=== PATIENT | female | born 1955 | race Caucasian/White ===

== ENCOUNTER 2018-05-31 00:07 | Inpatient (IN) | payer BC ==
[~2018-05-31] VITALS: Ht 144.8 cm; Wt 62.6 kg
[~2018-05-31 00:07] MED LIST: ASPI-320 PO; GLIP5TAB11 PO; INSDGIPEN SC; LEVO75TA5 PO; LISI20TA3 PO; LPT40 PO; PLV75 PO
--- NOTE | 2018-05-31 00:53 | EMERGENCY ROOM VISIT NOTE ---
History Report prepared by Sumit: Jarret Gatica Under the Supervision of: Dr. Alf Regan M.D. First contact with patient: 00:36 Chief Complaint: STROKE SYMPTOMS Stated Complaint: LFT ARM NUMB,LFT SIDE OF FACE NUMB,TROUBLE TALKING Nursing Triage Summary: pt states around 2330 she developed left arm numbness and "my hand was like a claw, I couldn't open or close it". Pt also states at the time she had left facial numbness and facial droop. History of Present Illness The patient is a 63 year old female who presents to the Emergency Room with complaints of resolved left arm numbness that occurred at 2330. The patient states that she woke up an hour ago and noticed her left arm was numb. She states that she was not able to use her left arm or put pressure on it. She notes that her left face was tingling and her speech was slightly slurred. The patient states that this episode lasted for about 16 minutes. She notes that her left ankle has also been swollen recently. The patient denies headache, neck pain, calf pain, falls, abdominal pain, nausea, vomiting, chest pain, back pain, shortness of breath, vision changes, urinary symptoms, and diarrhea. The patient states that she does have a history of CVA. She reports that her symptoms were somewhat similar to her current symptoms, except her symptoms were constant. She also reports she had difficulty with walking at that time. The patient states that she currently takes Plavix and Aspirin. She denies missing any doses. The patient reports a history of Diabetes. She states her BSG was 111 today. The patient denies taking any antacids. Source of History: patient Onset: 2330 Position: arm (left) Quality: numbness Timing: resolved Associated Symptoms: No headache, No neck pain, No chest pain, No SOB, No nausea, No vomiting, No abdominal pain, No back pain, No diarrhea, No urinary symptoms Note: Associated symptoms: speech slur, left facial tingling Denies: calf pain, vision changes. Review of Systems See HPI for pertinent positives & negatives. A total of 10 systems reviewed and were otherwise negative. Past Medical & Surgical Medical Problems: (1) CVA (cerebral vascular accident) (2) Diabetes mellitus type II, controlled (3) H/O reduction of closed fracture (4) HTN (hypertension) (5) Hypertensive urgency (6) Hypothyroidism (7) TIA (transient ischemic attack) Surgical Problems: (1) H/O cataract removal with insertion of prosthetic lens (2) History of appendectomy (3) History of cholecystectomy Family History FH: cancer FH: gallbladder disease FH: heart disease FH: lung disease Stroke Social History Smoking Status: Never Smoker Drug Use: none Marital Status: single Housing Status: lives alone Occupation Status: retired Current/Historical Medications Scheduled Amlodipine (Norvasc), 5 MG PO DAILY Aspirin (Aspirin Ec), 81 MG PO QAM Clopidogrel (Plavix), 75 MG PO DAILY Glipizide (Glucotrol), 5 MG PO BID Insulin Glargine (Lantus Solostar), 5 UNITS SQ QPM Levothyroxine Sodium (Levothyroxine Sodium), 75 MCG PO DAILY Lisinopril (Prinivil), 20 MG PO DAILY Allergies Coded Allergies: NO KNOWN DRUG ALLERGIES (Verified Allergy, Unknown, ., 05/31/18) Aspirin (Verified Adverse Reaction, Unknown, NOSE BLEEDS FROM DOSES HIGHER THAN 81MG, 05/31/18) Physical Exam Vital Signs Date Time Temp Pulse Resp B/P (MAP) Pulse Ox O2 Delivery O2 Flow Rate FiO2 05/31/18 02:00 36.8 94 18 174/85 99 Room Air 05/31/18 00:49 107 05/31/18 00:14 36.8 108 18 196/84 99 Room Air Physical Exam GENERAL: Patient is well appearing and in no acute distress. EYES: No scleral icterus, unremarkable pupils. ENT: Mucous membranes moist, no nasal congestion. NECK: No masses appreciated, no meningismus, trachea is midline. RESPIRATORY: No dyspnea. Clear to auscultation and equal bilaterally. No wheeze , no rhonchi. CARDIOVASCULAR: Regular rate and rhythm. No murmurs, rubs, gallops appreciated. GASTROINTESTINAL: Abdomen soft, nontender, no peritonitis. Bowel sounds positive. No masses appreciated. BACK: No midline tenderness, no CVA tenderness EXTREMITIES: Normal motion all extremities, no cyanosis, mildly increased circumference to left calf compared to right, no tenderness. NEUROLOGIC: Alert and oriented, no acute motor or sensory deficits, no focal weakness, cranial nerves grossly intact. SKIN: No rash, no jaundice, no diaphoresis. Medical Decision & Procedures ER Provider Diagnostic Interpretation: Stat Rad Radiology results and stated below per my review and radiologist interpretation: CT HEAD: No acute infarction or hemorrhage. Chronic lacunar infarction in the right periventricular area. Radiologist: Kulwinder Pringle MD US VENOUS LEFT LOWER EXTREMITY: Occlusive DVT in the left peroneal vein. No other DVT in the remainder of the veins of the left lower extremity. Radiologist: Mercy Carroll MD X ray results are stated below per my interpretation: Chest: 1 view: No infiltrate, no effusion, normal cardiac border. Laboratory Results 05/31/18 00:30 Red Blood Count 4.54, Mean Corpuscular Volume 83.3, Mean Corpuscular Hemoglobin 28.9, Mean Corpuscular Hemoglobin Concent 34.7, Mean Platelet Volume 10.1, Neutrophils (%) (Auto) 62.6, Lymphocytes (%) (Auto) 28.2, Monocytes (%) (Auto) 5.4, Eosinophils (%) (Auto) 3.0, Basophils (%) (Auto) 0.5, Neutrophils # (Auto) 3.72, Lymphocytes # (Auto) 1.68, Monocytes # (Auto) 0.32, Eosinophils # (Auto) 0.18, Basophils # (Auto) 0.03 05/31/18 00:30 Test 05/31/18 00:30 White Blood Count 5.95 K/uL (4.8-10.8) Red Blood Count 4.54 M/uL (4.2-5.4) Hemoglobin 13.1 g/dL (12.0-16.0) Hematocrit 37.8 % (37-47) Mean Corpuscular Volume 83.3 fL (80-100) Mean Corpuscular Hemoglobin 28.9 pg (25-34) Mean Corpuscular Hemoglobin Concent 34.7 g/dl (32-36) Platelet Count 217 K/uL (130-400) Mean Platelet Volume 10.1 fL (7.4-10.4) Neutrophils (%) (Auto) 62.6 % Lymphocytes (%) (Auto) 28.2 % Monocytes (%) (Auto) 5.4 % Eosinophils (%) (Auto) 3.0 % Basophils (%) (Auto) 0.5 % Neutrophils # (Auto) 3.72 K/uL (1.4-6.5) Lymphocytes # (Auto) 1.68 K/uL (1.2-3.4) Monocytes # (Auto) 0.32 K/uL (0.11-0.59) Eosinophils # (Auto) 0.18 K/uL (0-0.5) Basophils # (Auto) 0.03 K/uL (0-0.2) RDW Standard Deviation 41.7 fL (36.4-46.3) RDW Coefficient of Variation 13.8 % (11.5-14.5) Immature Granulocyte % (Auto) 0.3 % Immature Granulocyte # (Auto) 0.02 K/uL (0.00-0.02) Prothrombin Time 10.0 SECONDS (9.0-12.0) Prothromb Time International Ratio 1.0 (0.9-1.1) Activated Partial Thromboplast Time 26.6 SECONDS (21.0-31.0) Partial Thromboplastin Ratio 1.0 Anion Gap 10.0 mmol/L (3-11) Est Creatinine Clear Calc Drug Dose 42.1 ml/min Estimated GFR () 65.0 Estimated GFR (Non- 56.1 BUN/Creatinine Ratio 26.8 (10-20) Calcium Level 8.9 mg/dl (8.5-10.1) Magnesium Level 1.9 mg/dl (1.8-2.4) Total Bilirubin 0.5 mg/dl (0.2-1) Direct Bilirubin < 0.1 mg/dl (0-0.2) Aspartate Amino Transf (AST/SGOT) 18 U/L (15-37) Alanine Aminotransferase (ALT/SGPT) 24 U/L (12-78) Alkaline Phosphatase 135 U/L (45-117) Total Creatine Kinase 147 U/L (26-192) Troponin I < 0.015 ng/ml (0-0.045) Total Protein 7.9 gm/dl (6.4-8.2) Albumin 4.0 gm/dl (3.4-5.0) Thyroid Stimulating Hormone (TSH) 1.670 uIu/ml (0.300-4.500) Laboratory results as reviewed by me. ECG Per My Interpretation Indication: weakness Rate (beats per minute): 113 Rhythm: sinus tachycardia Findings: ST depression (Lateral), no acute ischemic change, no ectopy Comparison ECG Date: 09/17/16 Change: no significant change ED Course 0038: The patient was evaluated in room A11B. A complete history and physical exam was performed. 0141: I reevaluated the patient and he is stable. 0315: I reevaluated the patient and updated her on her results. Her blood pressure is now 118/60. She is willing to be evaluated by a hospitalist. 032: I discussed the patients case with Naheed James. He understands the patients condition and agrees to accept the patient. The patient will be evaluated for further management and care. Medical Decision Differential: Sepsis, Infectious (UTI/Pneumonia/Meningitis/etc), Metabolic/ Electrolyte Abnormality, Cardiac, Dehydration, Anemia, Hepatic, Endocrine, Toxicologic, Neurologic, amongst other pathologies entertained. 63 yr old female arrives for evaluation of left arm weakness that resolved prior to arrival. However on exam she is noted to have left calf swelling. CT head negative. EKG, labs OK. US left leg with distal DVT. She is on dual antiplatelets already and still having stroke like symptoms. She will need further work-up and evaluation for this that can not safely be done as outpatient at this time. Hospitalist consulted for further management. She is is stable, no further symptoms, no PE symptoms, and is no distress, I discussed anticoagulation with him and he will manage. Medication Reconcilliation Current Medication List: was personally reviewed by me Blood Pressure Screening Patient's blood pressure: Elevated blood pressure Referred to Hospitalist Consults Time Called: 320 Consulting Physician: Naheed James Returned Call: [phone] I discussed the patients case with Naheed Jmaes. He understands the patients condition and agrees to accept the patient. The patient will be evaluated for further management and care. Impression Primary Impression: TIA (transient ischemic attack) Additional Impression: DVT (deep venous thrombosis) Scribe Attestation The scribe's documentation has been prepared under my direction and personally reviewed by me in its entirety. I confirm that the note above accurately reflects all work, treatment, procedures, and medical decision making performed by me. Departure Information Dispostion Being Evaluated By Hospitalist Referrals Amrit Agudelo M.D. (PCP) Patient Instructions My [facility] Problem Qualifiers
[2018-05-31 00:54] LABS: BASO % 0.5 %; BASO ABS # 0.03 K/uL (0-0.2); EOS ABS # 0.18 K/uL (0-0.5); HEMATOCRIT 37.8 % (37-47); HEMOGLOBIN 13.1 g/dL (12.0-16.0); IG# 0.02 K/uL (0.00-0.02); LYMPH % 28.2 %; LYMPH ABS # 1.68 K/uL (1.2-3.4); MEAN CELL VOLUME 83.3 fL (80-100); MEAN CORPUSCULAR HEMOGLOBIN 28.9 pg (25-34); MEAN CORPUSCULAR HGB CONC 34.7 g/dl (32-36); MEAN PLATELET VOLUME 10.1 fL (7.4-10.4); MONO % 5.4 %; MONO ABS # 0.32 K/uL (0.11-0.59); NEUT % 62.6 %; NEUT ABS # 3.72 K/uL (1.4-6.5); PLATELET COUNT 217 K/uL (130-400); RED CELL DISTRIBUTION WIDTH CV 13.8 % (11.5-14.5); RED CELL DISTRIBUTION WIDTH SD 41.7 fL (36.4-46.3); WHITE BLOOD COUNT 5.95 K/uL (4.8-10.8)
[2018-05-31 01:04] LABS: PTT PATIENT 26.6 SECONDS (21.0-31.0)
[2018-05-31 01:17] LABS: BLOOD UREA NITROGEN 28 mg/dl (7-18); CALCIUM 8.9 mg/dl (8.5-10.1); CARBON DIOXIDE 22 mmol/L (21-32); CREATININE 1.05 mg/dl (0.60-1.20); GLUCOSE 146 mg/dl (70-99); POTASSIUM 3.7 mmol/L (3.5-5.1); SODIUM 136 mmol/L (136-145)
[2018-05-31] MEDS ORDERED: ASPI81TA28 PO (01:24)
[2018-05-31] MEDS ORDERED: AMLO5TAB3 PO (01:26)
[2018-05-31] MEDS ORDERED: CLOP1TAB15 PO (01:28)
[2018-05-31] MEDS ORDERED: INSDGIPEN SQ (01:30)
[2018-05-31] MEDS ORDERED: IV FLUIDS COMPLETED PRN (04:00)
[2018-05-31] MEDS ORDERED: GLUCOSE 10 TABS/TUBE PO PRN (04:15)
[2018-05-31] MEDS ORDERED: TRAMADOL HCL 50 MG TAB PO PRN (04:15)
[2018-05-31] MEDS ORDERED: DEXTROSE 50% 50 ML SYR IV PRN (04:15)
[2018-05-31] MEDS ORDERED: PHARMACIST DISCHARGE MED REC CONSULT PRN (04:15)
[2018-05-31] MEDS ORDERED: GLUCAGON FOR INJ 1 MG VIAL SQ PRN (04:15)
[2018-05-31] MEDS ORDERED: ACETAMINOPHEN 325 MG TAB PO PRN (04:15)
[2018-05-31] MEDS ORDERED: NITROGLYCERIN 0.4 MG SL PER TAB CHARGE SL PRN (04:15)
[2018-05-31] MEDS ORDERED: PROCHLORPERAZINE INJ 5 MG in SYRINGE 4 ML IV PRN (04:15)
[2018-05-31] MEDS ORDERED: LORAZEPAM 2 MG/ML 1 ML VIAL IV PRN (04:15)
[2018-05-31] MEDS ORDERED: CARBOHYDRATES FOR HYPOGLYCEMIA PO PRN (04:15)
[2018-05-31] MEDS ORDERED: GLUCOSE 40% GEL 15 GM TUBE PO PRN (04:15)
[2018-05-31] MEDS ORDERED: HEPARIN IV LOW DOSE NO BOLUS SCH (04:41)
[2018-05-31] MEDS ORDERED: PATIENT'S ALLERGY INFO NEEDS ENTERED STA (04:41)
[2018-05-31 04:44] LABS: ALKALINE PHOSPHATASE 135 U/L (45-117); ALT/SGPT 24 U/L (12-78); AST/SGOT 18 U/L (15-37); TOTAL PROTEIN 7.9 gm/dl (6.4-8.2)
[2018-05-31] MEDS ORDERED: HEPARIN 25000 UNIT/500 ML D5W ONE (05:02)
[2018-05-31] MEDS: HEPARIN 25,000 UNIT/500ML D5W 500 ML IV SCH (05:30)
[2018-05-31] MEDS ORDERED: NSS + 20MEQ KCL 1000ML 1,000 ML IV ONE (06:00)
[2018-05-31] MEDS ORDERED: INSULIN ASPART 100 UNITS/ML 3 ML PEN SC ONE (06:00)
[2018-05-31] MEDS ORDERED: LORAZEPAM INJ 0.5 MG in SYRINGE 0.75 ML IV PRN (06:00)
[2018-05-31 06:15] VITALS: BP 155/83; PULSE 113; TEMP 36.8; O2SAT 98; Ht 144.8 cm; Wt 62.6 kg
[2018-05-31 06:45] LABS: HEMOGLOBIN A1C 8.4 % (4.5-5.6)
--- NOTE | 2018-05-31 06:56 | DIAGNOSTIC IMAGING REPORT ---
LEFT LOWER EXTREMITY VENOUS DOPPLER HISTORY: left calf/ankle swelling COMPARISON STUDY: None. FINDINGS: Thrombus within the left peroneal veins. The remaining left lower extremity deep venous system is patent. IMPRESSION: Left lower extremity DVT within the peroneal veins. Electronically signed by: Yann Kenney M.D. 05/31/2018 6:54 AM Dictated Date/Time: 05/31/2018 6:54 AM
--- NOTE | 2018-05-31 07:08 | DIAGNOSTIC IMAGING REPORT ---
HEAD CT NONCONTRAST CT DOSE: 537.48 mGy.cm HISTORY: Left-sided facial and arm numbness. stroke TECHNIQUE: Multiaxial CT images of the head were performed without the use of intravenous contrast. Automated exposure control was utilized for this study. A dose lowering technique was utilized adhering to the principles of ALARA. Comparison: Head CT 09/17/2016. Findings: The paranasal sinuses and mastoid air cells are clear. The calvarium and skull base are intact. There is no mass, hematoma, midline shift, acute infarct. White matter hypodensity is nonspecific but suggestive of microvascular ischemic change. The ventricles and sulci demonstrate mild age-related involutional changes. Old small right periventricular infarcts. Impression: No acute intracranial abnormality. Old small right periventricular infarcts. Electronically signed by: Yann Kenney M.D. 05/31/2018 7:07 AM Dictated Date/Time: 05/31/2018 7:04 AM
[2018-05-31] MEDS: PANTOprazole SOD 40 MG TAB PO SCH (08:22)
[2018-05-31] MEDS: CLOPIDOGREL BISULFATE 75 MG TAB PO SCH (08:22)
[2018-05-31] MEDS: LEVOTHYROXINE 75 MCG TAB PO SCH (08:22)
[2018-05-31] MEDS: ASPIRIN 81 MG ECTAB PO SCH (08:49)
[2018-05-31] MEDS: INSULIN GLARGINE SOLOSTAR 100 UNITS/ML 3 ML PEN SQ SCH (09:00)
[2018-05-31] MEDS ORDERED: LISINOPRIL 2.5 MG TAB PO SCH (09:00)
--- NOTE | 2018-05-31 09:07 | DIAGNOSTIC IMAGING REPORT ---
CHEST ONE VIEW PORTABLE HISTORY: Left arm numbness. stroke symptoms COMPARISON: None. FINDINGS: The lungs are clear. Cardiac silhouette is normal in size. No pleural effusions. No pneumothorax. IMPRESSION: No acute process. Electronically signed by: Yann Kenney M.D. 05/31/2018 9:06 AM Dictated Date/Time: 05/31/2018 9:05 AM
[2018-05-31] MEDS ORDERED: PERFLUTREN LIPID MICROSPHERE (DEFINITY) IV ONE (11:42)
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
[2018-05-31 11:58] LABS: PTT PATIENT 32.3 SECONDS (21.0-31.0)
--- NOTE | 2018-05-31 12:23 | NEUROLOGY CONSULTATION ---
DATE OF CONSULTATION: 05/31/2018 REASON FOR CONSULTATION: Transient ischemic attack. HISTORY OF PRESENT ILLNESS: The patient is a 63-year-old left-handed female who was admitted through the Emergency Room because of left arm numbness. The patient had been lying in bed and woke up and noted her left arm was numb and clumsy as well as weak. She has subsequently noted that there is numbness in the face, a droop of the left mouth, mild dysarthria. There were no lower extremity symptoms. No change in vision, no dizziness and no accompanying headache. There was no alteration of consciousness. The symptoms lasted about half an hour and have resolved entirely. She has otherwise been well. For at least 2 months she has noted some mild asymmetric swelling of her lower extremities, more so on the left than the right. She had flown to [place] in February but did not necessarily notice this at that time. She has not had any recent headache, chest pain, palpitation, shortness of breath, head or neck trauma, chiropractic manipulation of the neck, medical or dental procedures. Her weight has been essentially stable. Her blood sugar was within a normal range. Patient has a history in 2016 of stroke which presented with a field cut toward the left and left arm and left leg weakness. Those symptoms resolved entirely. 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 She indicates that she does not know the results but that no change in therapy was made. She has not had any recurrent symptoms other than recently and has not had any postural symptoms. She denies a history of hyperlipidemia, NV, cancer, DVT, PE, rheumatic fever. PAST MEDICAL HISTORY: Notable for the aforementioned stroke, diabetes, hypertension, hypertensive urgency, hypothyroidism, stroke, history of cataract removal, appendectomy, cholecystectomy. SOCIAL HISTORY: Nonsmoker, nondrinker. Her sister lives in her home. FAMILY HISTORY: Father of cerebral hemorrhage in his 50s. Mother had stroke at 72. MEDICATIONS AT HOME: Norvasc, aspirin 81, Plavix 75, Glucotrol, insulin, levothyroxine, lisinopril. ALLERGIES: No drug allergies are noted. CT of the head shows an old right periventricular infarction. Lower extremity ultrasound shows a thrombus within the left peroneal veins. Electrocardiogram, sinus tachycardia, nonspecific T-wave abnormality now evident in the anterolateral leads. LABORATORY DATA: White count 5.95, H and H 13 and 37, platelet count 217. PT/PTT normal. Chemistry profile notable for a nonfasting glucose of 146, alkaline phosphatase 135. Hemoglobin A1c is 8.4. There is not yet a current lipid profile. PHYSICAL EXAMINATION: VITAL SIGNS: On admission, her blood pressure was 196/84, 99, pulse 108, 36.8. Currently 36.8, 113, 18, 155/83, 98% on room air. GENERAL: Patient is awake and alert. There is normal speech and language and her affect is appropriate. NECK: There are no carotid bruits. HEART: No heart murmurs. Heart is regular rate and rhythm. LUNGS: Clear. EXTREMITIES: Radial pulses are intact. The right dorsalis pedis pulse is difficult to palpate, the left is normal. The left calf is only mildly swollen. There is no tenderness or induration. NEUROLOGIC: Pupils are equal. I had difficulty visualizing the optic nerves. There is normal perez, motility, facial sensation, facial symmetry. Speech and language are normal. MOTOR: There is full strength. There is a mild left drift, equal rapid alternating movements. Lower extremity strength is full. Reflexes are mildly brisk. Toes are downgoing. [id number] and tybb-bo-mchf are normal. Intact light touch, temperature and vibration. IMPRESSION: Right hemisphere transient ischemic attack, query small vessel given the absence of language dysfunction and field cut. PLAN: MRI brain, MRA head and neck. The patient given her DVT will need to be on anticoagulants; at present I think it is reasonable to keep her on aspirin and Plavix. I will do some research about which antiplatelet agent has the least risk for bleeding when combined with anticoagulants or Novel anticoagulants. Her risk factors should be better managed including her diabetes. A lipid profile should be checked. Will order an echo with a bubble study, will follow with you.
[2018-05-31] MEDS ORDERED: HEPARIN IV BOLUS 4,000 UNIT in SYRINGE 0 ML IV ONE (13:00)
--- NOTE | 2018-05-31 13:07 | DIAGNOSTIC IMAGING REPORT ---
Brain MRI WITHOUT CONTRAST HISTORY: Slurred speech. Left arm numbness. Stroke TECHNIQUE: Multiplanar multisequence MRI of the brain was performed without the use of contrast. COMPARISON STUDY: Head CT 05/31/2018. Brain MRI 09/18/2016. FINDINGS: There is no mass, hematoma, midline shift, or acute infarct. The paranasal sinuses are clear. The mastoid air cells are clear. The ventricles and sulci demonstrate mild age-related involutional changes. Scattered foci of T2 hyperintensity seen within the periventricular and subcortical white matter are nonspecific but suggestive of mild microvascular ischemic changes. The major vascular flow voids at the skull base are well-maintained. Old small right periventricular infarct are again noted. IMPRESSION: No acute intracranial abnormality. Old small right periventricular infarcts. Electronically signed by: Yann Kenney M.D. 05/31/2018 1:05 PM Dictated Date/Time: 05/31/2018 1:01 PM
--- NOTE | 2018-05-31 13:13 | DIAGNOSTIC IMAGING REPORT ---
Brain MRA HISTORY: Left arm numbness. Stroke - Attention to [place] TECHNIQUE: 3-D [id number] MRA of the brain was performed without contrast. COMPARISON STUDY: Brain MRI 09/18/2016. FINDINGS: Hypoplastic distal right vertebral artery, unchanged. The distal left vertebral artery and basilar artery are patent. Hypoplastic bilateral P1 segment. The bilateral TEACHER COUNSELOR are fed primarily through the posterior communicating arteries. Focal occlusion of the distal right ICA, unchanged. However, the right MCA demonstrates perfusion due to the right TJ. No significant stenosis or occlusion within the bilateral ACAs, MCAs, or internal grinding machine operator. Moderate narrowing of the distal left ICA, unchanged. No aneurysms identified. Overall, slight diminished perfusion of the right MCA in comparison to the left. However, this is unchanged. IMPRESSION: Overall, no significant change compared to the prior study. 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 However, there is no significant stenosis or occlusion within the bilateral ACAs, MCAs, internal grinding machine operator. Electronically signed by: Yann Kenney M.D. 05/31/2018 1:11 PM Dictated Date/Time: 05/31/2018 1:06 PM
--- NOTE | 2018-05-31 13:38 | DIAGNOSTIC IMAGING REPORT ---
NECK MRA HISTORY: Left arm numbness. r hemisphere TIA TECHNIQUE: [id number] and gadolinium-enhanced MRA of the neck was performed both before and after the intravenous administration of contrast. All measurements were calculated based on NASCET criteria. COMPARISON STUDY: None. FINDINGS: The visualized aortic arch and proximal great vessels are patent. Mild focal narrowing within the distal left common carotid artery and proximal left internal carotid artery of approximately 30% likely due to the atherosclerotic plaque. The mid to distal left internal carotid artery is patent. No significant stenosis within the right common or internal carotid arteries. The right vertebral artery is hypoplastic but patent. Focal area of moderate stenosis of approximately 60-70% at the proximal left vertebral artery. IMPRESSION: 1. Mild narrowing within the left carotid bifurcation of approximately 30%. 2. Moderate focal stenosis within the proximal left vertebral artery. 3. No significant stenosis within the right common or right internal carotid arteries. Electronically signed by: Yann Kenney M.D. 05/31/2018 1:37 PM Dictated Date/Time: 05/31/2018 1:31 PM
[2018-05-31] MEDS: INSULIN ASPART 100 UNITS/ML 3 ML PEN SC SCH ×3 (13:50→20:40)
[2018-05-31 16:16] VITALS: BP 140/80; PULSE 70; TEMP 36.5; O2SAT 96
--- NOTE | 2018-05-31 17:16 | Progress Note ---
Medicine Progress Note Date & Time of Visit: May 31, 2018 at 16:58. Subjective Pt was seen and examined Sitting in bed comfortable with no distress Pt said that she feels fine Pt said that she does not have any weakness and numbness in his extremities Denies any chest pain, palpitation, dizziness and SOB Objective Last 8 Hrs Date Time Temp Pulse Resp B/P (MAP) Pulse Ox O2 Delivery O2 Flow Rate FiO2 05/31/18 16:16 36.5 70 18 140/80 (100) 96 Physical Exam: General- no acute distress Head- atraumatic Eyes- PERRL, EOMI ENT- oropharynx clear Neck- supple, no JVD Lungs- clear to auscultation Heart- regular rhythm; no murmur Abdomen- normal bowel sounds, soft Extremities- + Left lower extremity swelling Neuro- alert, oriented x 3, PERRL, EOMI; no facial palsy; no dysarthria; motor 5 /5 bilaterally; Skin- warm & dry Laboratory Results: Last 24 Hours Test 05/31/18 00:30 05/31/18 04:03 05/31/18 07:30 05/31/18 11:22 White Blood Count 5.95 K/uL Red Blood Count 4.54 M/uL Hemoglobin 13.1 g/dL Hematocrit 37.8 % Mean Corpuscular Volume 83.3 fL Mean Corpuscular Hemoglobin 28.9 pg Mean Corpuscular Hemoglobin Concent 34.7 g/dl Platelet Count 217 K/uL Mean Platelet Volume 10.1 fL Neutrophils (%) (Auto) 62.6 % Lymphocytes (%) (Auto) 28.2 % Monocytes (%) (Auto) 5.4 % Eosinophils (%) (Auto) 3.0 % Basophils (%) (Auto) 0.5 % Neutrophils # (Auto) 3.72 K/uL Lymphocytes # (Auto) 1.68 K/uL Monocytes # (Auto) 0.32 K/uL Eosinophils # (Auto) 0.18 K/uL Basophils # (Auto) 0.03 K/uL RDW Standard Deviation 41.7 fL RDW Coefficient of Variation 13.8 % Immature Granulocyte % (Auto) 0.3 % Immature Granulocyte # (Auto) 0.02 K/uL Prothrombin Time 10.0 SECONDS Prothromb Time International Ratio 1.0 Activated Partial Thromboplast Time 26.6 SECONDS 32.3 SECONDS Partial Thromboplastin Ratio 1.0 1.2 Sodium Level 136 mmol/L Potassium Level 3.7 mmol/L Chloride Level 104 mmol/L Carbon Dioxide Level 22 mmol/L Anion Gap 10.0 mmol/L Blood Urea Nitrogen 28 mg/dl Creatinine 1.05 mg/dl Est Creatinine Clear Calc Drug Dose 42.1 ml/min Estimated GFR () 65.0 Estimated GFR (Non- 56.1 BUN/Creatinine Ratio 26.8 Random Glucose 146 mg/dl Calcium Level 8.9 mg/dl Magnesium Level 1.9 mg/dl Total Bilirubin 0.5 mg/dl Direct Bilirubin < 0.1 mg/dl Aspartate Amino Transf (AST/SGOT) 18 U/L Alanine Aminotransferase (ALT/SGPT) 24 U/L Alkaline Phosphatase 135 U/L Total Creatine Kinase 147 U/L Troponin I < 0.015 ng/ml Total Protein 7.9 gm/dl Albumin 4.0 gm/dl Thyroid Stimulating Hormone (TSH) 1.670 uIu/ml Estimated Average Glucose 194 mg/dl Hemoglobin A1c 8.4 % Bedside Glucose 254 mg/dl Test 05/31/18 11:35 05/31/18 16:30 Bedside Glucose 197 mg/dl 270 mg/dl Assessment & Plan Stroke like symptoms CT head showed no acute intracranial abnormality MRA neck showed moderate focal stenosis within the proximal left vertebral artery. MRI of the head showed no acute intracranial abnormality MRA head showed no significant change compared to the prior study No arrhythmia on tele monitor Continue Plavix and aspirin Check Lipid in am Neurology on board Ok by neuro to continue heparin drip for the DVT Asymptomatic Echo pending Acute DVT Doppler of LE showed left lower extremity DVT within the peroneal veins. On heparin drip Coag panel pending Will start on the NOAC tomorrow since pt prefers them over coumadin Hypertensive BP on admission 196/86 Allow permissive HTN BP stable Continue monitor BP DM type 2 Hba1c 8.4 BS elevated will increase Lantus to 5 units BID Continue monitor BS DVT px on heparin subq CODE STATUS FULL CODE Current Inpatient Medications: Current Inpatient Medications Medications (Trade) Dose Ordered Sig/Bunny Route Start Time Stop Time Status Last Admin Dose Admin Miscellaneous (Iv Fluids Completed) 1 ea PRN PRN N/A 05/31/18 04:00 05/31/19 03:59 Potassium Chloride/Sodium Chloride 1,000 ml @ 60 mls/hr [id number] ONCE IV 7/21/18 06:00 05/31/18 22:39 05/31/18 08:23 60 MLS/HR Acetaminophen (Tylenol Tab) 650 mg Q4H PRN PO 05/31/18 04:15 06/30/18 04:14 Nitroglycerin (Nitrostat Tab) 0.4 mg UD PRN SL 05/31/18 04:15 06/30/18 04:14 Insulin Aspart (novoLOG ASPART) SLIDING SCALE If C... ACHS SC 05/31/18 11:00 06/30/18 10:59 05/31/18 13:50 1 UNITS Glucose (Glucose 40% Gel) 15-30 GRAMS 15 GRAMS... UD PRN PO 05/31/18 04:15 06/30/18 04:14 Glucose (Glucose Chew Tab) 4-8 Tablets 4 Tabl... UD PRN PO 05/31/18 04:15 06/30/18 04:14 Dextrose (Dextrose 50% 50ML Syringe) 25-50ML 25ML FOR ... UD PRN IV 05/31/18 04:15 06/30/18 04:14 Glucagon (Glucagon Inj) 1 mg UD PRN SQ 05/31/18 04:15 06/30/18 04:14 Carbohydrates (Carbohydrates For Hypoglycemia) 15-30 GRAMS 15 grams if BSG 54-69... UD PRN PO 05/31/18 04:15 06/30/18 04:14 Miscellaneous Information (Pharmacist Discharge Med Rec Consult) 1 ea UD PRN N/A 05/31/18 04:15 06/30/18 04:14 Tramadol HCl (Ultram Tab) 25 mg Q6H PRN PO 05/31/18 04:15 06/30/18 04:14 Prochlorperazine Edisylate 5 mg/ Syringe 5 ml @ 5 mls/min Q6H PRN IV 05/31/18 04:15 06/30/18 04:14 Lorazepam (Ativan Inj) 0.5 mg Q4H PRN IV 05/31/18 04:15 06/30/18 04:14 05/31/18 11:53 0.5 MG Aspirin (Ecotrin Tab) 81 mg QAM PO 05/31/18 09:00 06/30/18 08:59 05/31/18 08:49 81 MG Clopidogrel Bisulfate (plAVix TAB) 75 mg DAILY PO 05/31/18 09:00 06/30/18 08:59 05/31/18 08:22 75 MG Insulin Glargine (Lantus Solostar Pen) 5 units DAILY SQ 05/31/18 09:00 06/30/18 08:59 Levothyroxine Sodium (Synthroid Tab) 75 mcg DAILYBB PO 05/31/18 06:00 06/30/18 05:59 05/31/18 08:22 75 MCG Pantoprazole Sodium (Protonix Tab) 40 mg QAM PO 05/31/18 09:00 06/30/18 08:59 05/31/18 08:22 40 MG Heparin Sodium/ Dextrose 500 ml @ 15 mls/hr Q24H IV 05/31/18 05:30 06/30/18 05:29 Lorazepam 0.5 mg/ Syringe 1 ml @ 1 mls/min Q4H PRN IV 05/31/18 06:00 06/30/18 05:59 Lisinopril (Zestril Tab) 2.5 mg QAM PO 06/01/18 09:00 06/30/18 08:59
[2018-05-31] MEDS ORDERED: NURSING VERBAL MED ORDER ONE (18:15)
[2018-05-31 19:31] VITALS: BP 142/70; PULSE 78; TEMP 36.4; O2SAT 98
[2018-05-31 20:00] VITALS: O2SAT 98
[2018-05-31] MEDS ORDERED: INSULIN GLARGINE SOLOSTAR 100 UNITS/ML 3 ML PEN SQ SCH (21:00)
[2018-05-31 23:40] VITALS: BP 114/69; PULSE 84; TEMP 36.6; O2SAT 99
[2018-06-01 00:52] LABS: PTT PATIENT 60.4 SECONDS (21.0-31.0)
[2018-06-01 03:38] VITALS: BP 111/67; PULSE 82; TEMP 36.6; O2SAT 97
[2018-06-01] MEDS: LEVOTHYROXINE 75 MCG TAB PO SCH (05:37)
[2018-06-01 06:33] LABS: BASO % 0.6 %; BASO ABS # 0.03 K/uL (0-0.2); EOS % 4.5 %; EOS ABS # 0.24 K/uL (0-0.5); HEMATOCRIT 35.8 % (37-47); HEMOGLOBIN 12.4 g/dL (12.0-16.0); IG# 0.02 K/uL (0.00-0.02); LYMPH % 27.5 %; LYMPH ABS # 1.45 K/uL (1.2-3.4); MEAN CELL VOLUME 83.6 fL (80-100); MEAN CORPUSCULAR HGB CONC 34.6 g/dl (32-36); MEAN PLATELET VOLUME 9.6 fL (7.4-10.4); MONO ABS # 0.42 K/uL (0.11-0.59); NEUT ABS # 3.12 K/uL (1.4-6.5); PLATELET COUNT 164 K/uL (130-400); RED CELL DISTRIBUTION WIDTH CV 13.8 % (11.5-14.5); RED CELL DISTRIBUTION WIDTH SD 41.8 fL (36.4-46.3); WHITE BLOOD COUNT 5.28 K/uL (4.8-10.8)
[2018-06-01 07:07] LABS: PTT PATIENT 80.1 SECONDS (21.0-31.0)
[2018-06-01 08:02] VITALS: BP 165/89; PULSE 91; TEMP 37; O2SAT 99
[2018-06-01] MEDS: CLOPIDOGREL BISULFATE 75 MG TAB PO SCH (08:52)
[2018-06-01] MEDS: PANTOprazole SOD 40 MG TAB PO SCH (08:52)
[2018-06-01] MEDS: ASPIRIN 81 MG ECTAB PO SCH (08:52)
[2018-06-01] MEDS: INSULIN GLARGINE SOLOSTAR 100 UNITS/ML 3 ML PEN SQ SCH (08:56)
[2018-06-01] MEDS: INSULIN ASPART 100 UNITS/ML 3 ML PEN SC SCH ×2 (08:56→11:57)
[2018-06-01] MEDS: HEPARIN 25,000 UNIT/500ML D5W 500 ML IV SCH (08:57)
[2018-06-01] MEDS ORDERED: LISINOPRIL 2.5 MG TAB PO SCH (09:00)
--- NOTE | 2018-06-01 09:01 | ECHOCARDIOGRAM REPORT ---
*NOTICE TO RECEIVING CONSTITUTION PARTY AGENCY This information is strictly Confidential and protected under [place] law. [place] law prohibits you from making any further disclosure of this information unless further disclosure is expressly permitted by the written consent of the person to whom it pertains or is authorized by law. A general authorization for the release of medical or other information is not sufficient for this purpose. Hospital accepts no responsibility if the information is made available to any other person, INCLUDING THE PATIENT. Interpretation Summary * Name: BEBA MORELAND Study Date: 05/31/2018 11:03 AM BP: 155/83 mmHg * Patient Location: C.2T\S\S241\S\1 HR: 113 * : 1955 (M/d/yyyy) Gender: Female Height: 57 in * Age: 63 yrs Ethnicity: [place] Weight: 137 lb * Ordering Physician: Court Bocanegra * Referring Physician: Self, Referred * Performed By: Fay Rocha RDCS * * Reason For Study: TIA * BSA: 1.5 m2 * -- Conclusions -- * Injection of contrast documented no interatrial shunt. * The interatrial septum is intact with no evidence for an atrial septal defect. * The left ventricle is normal in size. * There is moderate concentric left ventricular hypertrophy. * Ejection Fraction = 55-60%. * The right ventricular systolic function is normal. * The left atrial size is normal. * Right atrial size is normal. * Aortic valve sclerosis moderate, without significant aortic valvular stenosis. Procedure Details * A complete two-dimensional transthoracic echocardiogram was performed (2D, M-mode, Doppler and color flow Doppler). * A saline contrast injection was performed to assess for cardiac shunting. * The injection was performed through an intravenous line in the right arm. * The attending nurse who injected the saline contrast was RADHA Valladares. * A total of 20 cc of agitated saline was given. * A contrast injection of Definity was performed to improve assessment of LV function. * Contrast was injected into an intravenous site in the right arm. * One vial of Definity ultrasound contrast was diluted in normal saline to a total volume of 10 ml. A total of '1' ml of solution was administered during imaging. * Lot # [id number] of Definity utilized for procedure. * Expiration date 1May19. * The attending nurse who injected the contrast agent was RADHA Valladares. Left Ventricle * The left ventricle is normal in size. * There is moderate concentric left ventricular hypertrophy. * Ejection Fraction = 55-60%. * Left ventricular systolic function is normal. Right Ventricle * The right ventricle is grossly normal size. * The right ventricular systolic function is normal. Atria * The left atrial size is normal. * Right atrial size is normal. * Injection of contrast documented no interatrial shunt. * The interatrial septum is intact with no evidence for an atrial septal defect. Mitral Valve * The mitral valve is grossly normal. * Significant mitral regurgitation is absent. Tricuspid Valve * The tricuspid valve is not well visualized, but is grossly normal. * Significant tricuspid regurgitation is absent. Aortic Valve * Aortic valve sclerosis moderate, without significant aortic valvular stenosis. * The aortic valve is tricuspid. The leaflet thickness if normal. There is no aortic stenosis, and no significant insufficiency. * There is no significant aortic regurgitation. Pulmonic Valve * The pulmonic valve is not well visualized. Great Vessels * The aortic root and proximal ascending aorta are normal sized. Pericardium/Pleural * There is no pericardial effusion. MMode 2D Measurements and Calculations IVSd 0.81 cm IVSs 1.2 cm LVIDd 3.8 cm LVIDs 2.6 cm LVPWd 0.75 cm LVPWs 1.3 cm IVS/LVPW 1.1 FS 30.5 % EDV(Teich) 60.1 ml ESV(Teich) 24.8 ml EF(Teich) 58.7 % EDV(cubed) 52.8 ml ESV(cubed) 17.8 ml EF(cubed) 66.4 % % IVS thick 45.7 % % LVPW thick 73.4 % LV mass(C)d 81.8 grams LV mass(C)dI 53.4 grams/m\S\2 LV mass(C)s 96.1 grams LV mass(C)sI 62.8 grams/m\S\2 SV(Teich) 35.3 ml SI(Teich) 23.0 ml/m\S\2 SV(cubed) 35.1 ml SI(cubed) 22.9 ml/m\S\2 Ao root diam 2.6 cm Ao root area 5.4 cm\S\2 ACS 1.2 cm LA dimension 2.3 cm LA/Ao 0.88 LVAd ap4 20.7 cm\S\2 LVLd ap4 6.8 cm EDV(MOD-sp4) 51.3 ml EDV(sp4-el) 53.6 ml LVAs ap4 13.5 cm\S\2 LVLs ap4 6.7 cm ESV(MOD-sp4) 22.9 ml ESV(sp4-el) 23.2 ml EF(MOD-sp4) 55.4 % EF(sp4-el) 56.7 % LVAd ap2 23.8 cm\S\2 LVLd ap2 7.5 cm EDV(MOD-sp2) 61.1 ml EDV(sp2-el) 64.4 ml LVAs ap2 12.9 cm\S\2 LVLs ap2 6.6 cm ESV(MOD-sp2) 22.1 ml ESV(sp2-el) 21.4 ml EF(MOD-sp2) 63.9 % EF(sp2-el) 66.7 % LVLd %diff 9.1 % EDV(MOD-bp) 56.7 ml LVLs %diff -0.67 % ESV(MOD-bp) 22.0 ml EF(MOD-bp) 61.3 % SV(MOD-sp4) 28.5 ml SI(MOD-sp4) 18.6 ml/m\S\2 SV(MOD-sp2) 39.1 ml SI(MOD-sp2) 25.5 ml/m\S\2 SV(MOD-bp) 34.8 ml SI(MOD-bp) 22.7 ml/m\S\2 SV(sp4-el) 30.4 ml SI(sp4-el) 19.8 ml/m\S\2 SV(sp2-el) 43.0 ml SI(sp2-el) 28.1 ml/m\S\2 Doppler Measurements and Calculations MV E max shyanne 100.1 cm/sec MV A max shyanne 89.3 cm/sec MV E/A 1.1 MV dec time 0.23 sec Ao V2 max 156.2 cm/sec Ao max PG 9.8 mmHg Ao max PG (full) 6.7 mmHg LV V1 max PG 3.0 mmHg LV V1 max 87.1 cm/sec PA V2 max 108.7 cm/sec PA max PG 4.7 mmHg
--- NOTE | 2018-06-01 11:43 | PROGRESS NOTE ---
DATE: 06/01/2018 Ms. García comes today in followup of a right hemispheric transient ischemic attack. Unclear of the localization, i.e. large vessel or small vessel. The patient's MRI of the brain was normal. 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 MRA of the neck showed no significant stenosis in the carotids, moderate focal stenosis within the proximal left vert. The patient's LDL was 96. PHYSICAL EXAMINATION: GENERAL: The patient is awake and alert. There is normal speech and language. Her affect is appropriate. VITAL SIGNS: Temperature 37, 91, 16, 165/89, 99%. NEUROLOGIC: There is normal speech and language. Normal visual perez, facial symmetry and facial sensation. There is mild left drift with equal rapid alternating movements and normal lower extremity strength. Normal light touch bilaterally. IMPRESSION: Transient ischemic attack, unclear whether large vessel or small vessel. PLAN: Given that the patient was just diagnosed with a DVT, I would recommend additional ongoing antiplatelet agents. That having been said, the patient has a history of nosebleeds on aspirin and I think we are markedly increasing the risk of bleeding complications refusing dual antiplatelet therapy and the anticoagulant therapy. Therefore, I would recommend that the patient continue Plavix with her anticoagulants and when she goes off anticoagulants that Plavix be continued and aspirin be resumed at 162 daily. The patient should be on a statin if she can tolerate it. We will arrange Zio patch in the office when we see her back in two to three weeks. I would monitor for hypotension as the patient might be susceptible to ischemic symptoms with drops in blood pressure given her right distal carotid occlusion. EDILBERTO
[2018-06-01 12:00] VITALS: BP 143/76; PULSE 92; TEMP 36.6; O2SAT 98
--- NOTE | 2018-06-01 12:43 | Progress Note ---
Medicine Progress Note Date & Time of Visit: Jun 01, 2018 at 12:30. Subjective Pt was seen and examined Sitting in bed with no distress Pt said that she feels fine She denies any symptoms She is very anxious to go home Objective Last 8 Hrs Date Time Temp Pulse Resp B/P (MAP) Pulse Ox O2 Delivery O2 Flow Rate FiO2 06/01/18 12:00 36.6 92 16 143/76 (98) 98 Room Air 06/01/18 08:02 37.0 91 16 165/89 (114) 99 Room Air 06/01/18 08:00 Room Air Physical Exam: General- no acute distress Head- atraumatic Eyes- PERRL, EOMI ENT- oropharynx clear Neck- supple, no JVD Lungs- clear to auscultation Heart- regular rhythm; no murmur Abdomen- normal bowel sounds, soft Extremities- + Left lower extremity swelling Neuro- alert, oriented x 3, PERRL, EOMI; no facial palsy; no dysarthria; motor 5 /5 bilaterally; Skin- warm & dry Laboratory Results: Last 24 Hours Test 05/31/18 16:30 05/31/18 18:41 05/31/18 20:04 06/01/18 00:23 Bedside Glucose 270 mg/dl 173 mg/dl Activated Partial Thromboplast Time 52.0 SECONDS 60.4 SECONDS Partial Thromboplastin Ratio 2.0 2.3 Test 06/01/18 06:25 06/01/18 07:31 06/01/18 11:31 White Blood Count 5.28 K/uL Red Blood Count 4.28 M/uL Hemoglobin 12.4 g/dL Hematocrit 35.8 % Mean Corpuscular Volume 83.6 fL Mean Corpuscular Hemoglobin 29.0 pg Mean Corpuscular Hemoglobin Concent 34.6 g/dl Platelet Count 164 K/uL Mean Platelet Volume 9.6 fL Neutrophils (%) (Auto) 59.0 % Lymphocytes (%) (Auto) 27.5 % Monocytes (%) (Auto) 8.0 % Eosinophils (%) (Auto) 4.5 % Basophils (%) (Auto) 0.6 % Neutrophils # (Auto) 3.12 K/uL Lymphocytes # (Auto) 1.45 K/uL Monocytes # (Auto) 0.42 K/uL Eosinophils # (Auto) 0.24 K/uL Basophils # (Auto) 0.03 K/uL RDW Standard Deviation 41.8 fL RDW Coefficient of Variation 13.8 % Immature Granulocyte % (Auto) 0.4 % Immature Granulocyte # (Auto) 0.02 K/uL Activated Partial Thromboplast Time 80.1 SECONDS Partial Thromboplastin Ratio 3.1 Triglycerides Level 251 mg/dl Cholesterol Level 173 mg/dl HDL Cholesterol 27 mg/dl LDL Cholesterol, Calculated 96 mg/dl VLDL Cholesterol, Calculated 50 mg/dl Cholesterol/HDL Ratio 6.4 Bedside Glucose 273 mg/dl 212 mg/dl Assessment & Plan Stroke like symptoms CT head showed no acute intracranial abnormality MRA neck showed moderate focal stenosis within the proximal left vertebral artery. MRI of the head showed no acute intracranial abnormality MRA head showed no significant change compared to the prior study No arrhythmia on tele monitor Continue Plavix and aspirin Chol 173, LDL 96 Statin intolerance- Refused to try any other statins Neurology on board Case discussed with Neurology Dr. Salinas Recommended to continue plavis with the NOAC agent, will d/c aspirin Once anticoagulants agents discontinue, will do plavis and aspirin 162 mg Asymptomatic Follow up with Neurology in 2 to 3 weeks Neurology will arrange for Zio heart monitor as an outpatient ECHO showed * Injection of contrast documented no interatrial shunt. * The interatrial septum is intact with no evidence for an atrial septal defect. * The left ventricle is normal in size. * There is moderate concentric left ventricular hypertrophy. * Ejection Fraction = 55-60%. * The right ventricular systolic function is normal. * The left atrial size is normal. * Right atrial size is normal. * Aortic valve sclerosis moderate, without significant aortic valvular stenosis. Acute DVT Doppler of LE showed left lower extremity DVT within the peroneal veins. On heparin drip Pt prefers the NOAC agents over coumadin Coag panel pending risks of anticoagulant discussed with patient such bleeding Pt advised to avoid any activities that put her at risk for fall Will consider to start on eliquis Hypertensive BP on admission 196/86 Allow permissive HTN BP stable Continue monitor BP DM type 2 Hba1c 8.4 BS elevated Will need to increase Lantus Continue monitor BS DVT px on heparin subq CODE STATUS FULL CODE Disposition Follow up with Neuro in 2 to 3 weeks Follow up with PCP (Pt said that she is in the process of changing PCP, she said that she already has an appt with her new PCP) (refused to get a follow up discharge appt with her current PCP Dr. Agudelo) Current Inpatient Medications: Current Inpatient Medications Medications (Trade) Dose Ordered Sig/Bunny Route Start Time Stop Time Status Last Admin Dose Admin Miscellaneous (Iv Fluids Completed) 1 ea PRN PRN N/A 05/31/18 04:00 05/31/19 03:59 Acetaminophen (Tylenol Tab) 650 mg Q4H PRN PO 05/31/18 04:15 06/30/18 04:14 Nitroglycerin (Nitrostat Tab) 0.4 mg UD PRN SL 05/31/18 04:15 06/30/18 04:14 Insulin Aspart (novoLOG ASPART) SLIDING SCALE If C... ACHS SC 05/31/18 11:00 06/30/18 10:59 06/01/18 11:57 2 UNITS Glucose (Glucose 40% Gel) 15-30 GRAMS 15 GRAMS... UD PRN PO 05/31/18 04:15 06/30/18 04:14 Glucose (Glucose Chew Tab) 4-8 Tablets 4 Tabl... UD PRN PO 05/31/18 04:15 06/30/18 04:14 Dextrose (Dextrose 50% 50ML Syringe) 25-50ML 25ML FOR ... UD PRN IV 05/31/18 04:15 06/30/18 04:14 Glucagon (Glucagon Inj) 1 mg UD PRN SQ 05/31/18 04:15 06/30/18 04:14 Carbohydrates (Carbohydrates For Hypoglycemia) 15-30 GRAMS 15 grams if BSG 54-69... UD PRN PO 05/31/18 04:15 06/30/18 04:14 Miscellaneous Information (Pharmacist Discharge Med Rec Consult) 1 ea UD PRN N/A 05/31/18 04:15 06/30/18 04:14 Tramadol HCl (Ultram Tab) 25 mg Q6H PRN PO 05/31/18 04:15 06/30/18 04:14 Prochlorperazine Edisylate 5 mg/ Syringe 5 ml @ 5 mls/min Q6H PRN IV 05/31/18 04:15 06/30/18 04:14 Lorazepam (Ativan Inj) 0.5 mg Q4H PRN IV 05/31/18 04:15 06/30/18 04:14 05/31/18 11:53 0.5 MG Aspirin (Ecotrin Tab) 81 mg QAM PO 05/31/18 09:00 06/30/18 08:59 06/01/18 08:52 81 MG Clopidogrel Bisulfate (plAVix TAB) 75 mg DAILY PO 05/31/18 09:00 06/30/18 08:59 06/01/18 08:52 75 MG Insulin Glargine (Lantus Solostar Pen) 5 units DAILY SQ 05/31/18 09:00 06/30/18 08:59 06/01/18 08:56 5 UNITS Levothyroxine Sodium (Synthroid Tab) 75 mcg DAILYBB PO 05/31/18 06:00 06/30/18 05:59 06/01/18 05:37 75 MCG Pantoprazole Sodium (Protonix Tab) 40 mg QAM PO 05/31/18 09:00 06/30/18 08:59 06/01/18 08:52 40 MG Heparin Sodium/ Dextrose 500 ml @ 13 mls/hr Q24H IV 05/31/18 05:30 06/30/18 05:29 06/01/18 08:57 13 MLS/HR Lorazepam 0.5 mg/ Syringe 1 ml @ 1 mls/min Q4H PRN IV 05/31/18 06:00 06/30/18 05:59 Lisinopril (Zestril Tab) 2.5 mg QAM PO 06/01/18 09:00 06/30/18 08:59 06/01/18 08:52 2.5 MG Insulin Glargine (Lantus Solostar Pen) 5 units HS SQ 05/31/18 21:00 06/30/18 20:59 05/31/18 21:02 5 UNITS
[2018-06-01] MEDS ORDERED: LISI5TAB PO (12:59)
[2018-06-01] MEDS ORDERED: APIX1TAB3 PO ×2 (13:03→13:09)
--- NOTE | 2018-06-01 13:16 | Discharge Instructions ---
Discharge Instructions Date of Service Jun 01, 2018. Admission Reason for Admission: Dvt, Tia Discharge Discharge Diagnosis / Problem: Stroke like symptoms, Acute DVT Discharge Goals Goal(s): Decrease discomfort, Improve function, Improve disease control Activity Recommendations Activity Limitations: resume your previous activity (as tolerated) . Instructions / Follow-Up Instructions / Follow-Up Please call to schedule follow up appointment with your primary care provider within 1 week Follow up with Neurology dr. Bocanegra in 2 to 3 weeks (Dr. Bocanegra office will contact you for the appointment, if you don't hear from the office within 1 week , please call to schedule it) Monitor your blood sugar Hold Glipize for now, OK to resume Glipizide tomorrow overnight cashier your blood pressure, if BP starts to elevate, your physician will titrate the medicine Lisinopril decreased to 5 mg daily Monitor for any signs of bleeding such as blood in the stool and urine Medication Instructions: Eliquis Your condition is typically treated with an anticoagulant. Anticoagulants will thin your blood to help prevent new clots. * You should take her medication exactly as directed. * Never skip a dose. * Never take a double dose. If you miss a dose, take it as soon as you remember. Call your Primary Care doctor if you experience any of the following: * Swelling or Pain in your leg * Sudden, continuous pain deep in a muscle * Pain that worsens when you are active or when you stand still for a long time * Chest Pain * Sudden Shortness of Breath * Rapid or pounding heart beat * Fainting * Dizziness * Cough with blood or bloody sputum * Sweating more than normal * Bruises * Heavy or uncontrolled bleeding * Blood in your urine, stool or vomit * Black or tarry stools Caring for Your Self at Home: * Avoid sitting, standing or lying down for long periods without moving your legs and feet * When traveling by car, stop to get out and move around at least once every 3 hours * On long airplane, train or bus rides, get up and move around when possible * If you can't get up, wiggle your toes and tighten your calves to keep your blood moving Follow Up: It is important for you to keep your follow up appointments with your medical provider. Current Hospital Diet Patient's current hospital diet: AHA Diet (Heart Healthy), Diabetes Type 2 Diet Discharge Diet Recommended Diet: AHA Diet (Heart Healthy), Low Sodium Diet (2gm Na) Pending Studies Studies pending at discharge: no Laboratory Results Hemoglobin A1c Test 05/31/18 04:03 Range/Units Estimated Average Glucose 194 mg/dl Hemoglobin A1c 8.4 H 4.5-5.6 % Lipid Panel Test 06/01/18 06:25 Range/Units Triglycerides Level 251 H 0-150 mg/dl Cholesterol Level 173 0-200 mg/dl HDL Cholesterol 27 mg/dl Cholesterol/HDL Ratio 6.4 LDL Cholesterol, Calculated 96 mg/dl Medical Emergencies . Who to Call and When: Medical Emergencies: If at any time you feel your situation is an emergency, please call 911 immediately. . Non-Emergent Contact Non-Emergency issues call your: Primary Care Provider, Neurologist Call Non-Emergent contact if: you have any medication questions . . "Provider Documentation" section prepared by María Mccray. .
[2018-06-01] MEDS ORDERED: APIXABAN 2.5 MG TAB PO ONE (13:24)
[2018-06-01 13:40] VITALS: BP 143/76; PULSE 92; TEMP 36.6; O2SAT 98
--- NOTE | 2018-06-01 13:59 | Pharmacy Progress Note ---
Pharmacist Stroke Counseling Date of Service Jun 01, 2018. Scope Pharmacy has been consulted to provide medication discharge counseling for this patient admitted with transient ischemic attack as per the Pharmacist Discharge Counseling for Stroke Patients Protocol. Medications on Discharge New Medications: Apixaban (Eliquis) 5 Mg Tab 5 MG PO BID for 30 Days, #80 TAB Take 2 tab twice a day for 7 days, then 5 mg twice day. Changed Medications: Lisinopril (Prinivil) 5 Mg Tab 1 TAB PO DAILY for 30 Days, #30 TAB 1 Refill (Changed from: Lisinopril (Prinivil ) 20 Mg Tab 20 Mg PO DAILY) Continued Medications: Clopidogrel (Plavix) 75 Mg Tab 75 MG PO DAILY, TAB Glipizide (Glucotrol) 5 Mg Tab 5 MG PO BID TAKE PRIOR TO MEALS Insulin Glargine (Lantus Solostar) 100 Unit/Ml Inj 5 UNITS SQ QPM, PEN Levothyroxine Sodium (Levothyroxine Sodium) 75 Mcg Tab 75 MCG PO DAILY Discontinued Medications: Amlodipine (Norvasc) 5 Mg Tab 5 MG PO DAILY, TAB Aspirin (Aspirin Ec) 81 Mg Tab 81 MG PO QAM Action The above medications, specifically ones for stroke treatment/prophylaxis, have been reviewed in detail with the patient and/or patient investment representative(s) prior to discharge. This includes indication, common adverse reactions, drug interactions, and medication administration. Medication counseling has been employed using the teach-back method to ensure understanding. Outcome The patient and/or patient investment representative(s) have demonstrated understanding of the medications. Please note, they are aware that the pharmacist will call them within 72 hours post-discharge to confirm that the appropriate medications are being taken and answer any further medication related questions the patient might have at that time. Contact information Individual to be contacted: Amaya García Relationship to patient (if applicable): patient Phone number: Best time to call: late afternoon Additional comments: Mrs García was a pleasant woman and appeared to understand what we discussed. Spoke with patient regarding the medications she will be taking after discharge , including the new medication Eliquis. She knew that for the first 7 days she is to take 10mg BID and then decrease to 5mg po BID. She plans to pharmacy picking technician the Eliquis on her way home from the hospital. She will continue Plavix and Aspirin as previously prescribed. She understood the importance of taking the medications to minimize future problems. Thank you for allowing pharmacy to be involved in the care of this patient. Please call [phone] with any additional questions
[2018-06-01] MEDS ORDERED: APIXABAN 2.5 MG TAB PO SCH (21:00)
--- NOTE | 2018-06-02 14:20 | Pharmacy Progress Note ---
Pharmacist Post D/C Phone Note Date of phone call: Jun 02, 2018. Individual with whom pharmacist spoke to: Patient The following questions were reviewed during the phone call with responses listed below each: Can you tell me the medications that you are currently taking as well as when and how you take each medication? - YES When have you missed any doses of your medications? - NO What side effects are you having from your medications? - NONE What questions do you have about your medications? - Patient states her BP has been 140-160/80, she is only taking Lisinopril 5mg as directed, decreased from 20mg during admission. Pt will f/u with PCP, calling for appt today - Patient anxious to restart Glipizide tonight, blood sugars also slightly elevated, encouraged patient to discuss w/ her PCP, and pt states she will do so. - Patient taking Eliquis as directed, 10mg BID x 7 days then 5mg BID What problems are you having obtaining your medications? - none When is your next appointment with your primary care doctor? - Calling today for f/u appt Additional comments: - Pt aware to call us w/ further questions or if having problems connecting with outpatient provider, especially regarding BP and BSG As per the Pharmacist Discharge Counseling for Stroke Patients Protocol, this phone call has been completed within 72 hours of discharge. Thank you for allowing us to be involved in the care of this patient.
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
[2018-06-04 15:36] LABS: ANTICARDIOLIPID AB IGA <11 APL (< = 11)
--- NOTE | 2018-06-06 07:03 | EDITING REQUIRED CODING QUERY ---
CODING QUERY To promote full compliance with coding requirements relating to patient care, provider participation is requested in all cases of microbiology lab technician uncertainty. Please assist us with the question(s) below: Coding Question(s): Patient admitted with left arm weakness and clumsiness. History of CVA in 2016. Patient awoke from sleep with extremity weakness and face tingliness. Symptoms resolved in ED. Neurology Consult mentions TIA . Discharge Summary states " Stroke -like symptoms". Please indicate final diagnosis, if suspected or known. Thank you! Zhou Marie [facility] Physician's Response(s): TIA Principal Diagnosis: "_that condition established after study, to be chiefly responsible for occasioning the admission of the patient to the hospital for care." Co-Existing Principal Diagnosis: "_when two or more diagnoses equally meet the criteria for principal diagnosis as determined by the circumstances of admission, diagnostic work up, and/or therapy provided, and the Alphabetic Index, Tabular List, or another coding guideline does not provide sequencing direction, any one of the diagnoses may be sequenced first." "When the physician has documented what appears to be a current diagnosis in the body of the record, but has not included the diagnosis in the final diagnostic statement, the physician should be asked whether the diagnosis should be added." (Source Coding [facility] 2 QTR90. p3-4)
== END 2018-06-01 14:36 | disposition home or self-care (01) | DRG 69 ==
LOC: C.EDB 00:08 → C.2T 03:52 → ENRESERV 03:53 → EDBEDREQ 03:54
PROVIDERS: ADMIT Internal Medicine; ATTEND Internal Medicine
DX: G45.9 Transient cerebral ischemic attack, unspecified (principal); I82.492 Acute embolism and thrombosis of other specified deep vein of left lower extremity; I16.0 Hypertensive urgency; E11.9 Type 2 diabetes mellitus without complications; I10 Essential (primary) hypertension; E03.9 Hypothyroidism, unspecified; Z82.49 Family history of ischemic heart disease and other diseases of the circulatory system; Z79.4 Long term (current) use of insulin; Z86.73 Personal history of transient ischemic attack (TIA), and cerebral infarction without residual deficits; Z79.82 Long term (current) use of aspirin; Z79.02 Long term (current) use of antithrombotics/antiplatelets